=== PATIENT | male | born 1990 | race Asian ===

== ENCOUNTER → 2016-08-09 | Outpatient (CLI) | payer OTHER ==
[~2016-08-09] MED LIST: OMEGA-3 1000 MG1 CAP PO; THE MEDICINE SH1 POW PO
== END ==
LOC: COL.RAD 15:37
DX: R10.30 Lower abdominal pain, unspecified (principal)

== ENCOUNTER 2016-12-09 10:17 | Day surgery (SDC) | payer OTHER ==
[~2016-12-09] VITALS: Ht 170.2 cm; Wt 63.3 kg
[2016-12-09 10:55] VITALS: BP 103/81; PULSE 75; TEMP 98.7
[2016-12-09] MEDS ORDERED: OMEGA-3 1000 MG1 CAP PO (11:09)
[2016-12-09] MEDS ORDERED: THE MEDICINE SH1 POW PO (11:11)
[2016-12-09 13:39] VITALS: BP 109/71; PULSE 66; TEMP 97.8
[2016-12-09 13:45] VITALS: BP 103/77; PULSE 61
[2016-12-09 14:00] VITALS: BP 97/80; PULSE 64
[2016-12-09 16:09] VITALS: BP 92/58; PULSE 57
== END 2016-12-09 14:13 | disposition home or self-care (01) ==
LOC: SDCO 10:17
DX: D12.8 Benign neoplasm of rectum (principal); K62.5 Hemorrhage of anus and rectum; R19.7 Diarrhea, unspecified
CPT/HCPCS: J2250; J2405; J3010; J7030